=== PATIENT | female | born 1990 | race American Indian/Alaskan Native ===

== ENCOUNTER 2017-11-25 06:44 | Day surgery (SDC) | payer OTHER ==
[~2017-11-25 06:44] MED LIST: HEPARIN SUB-Q NR; VANCOMYCIN PHARMACY TO DOSE IV SCH; VANCOMYCIN/NS 1 GM/250 ML 1 GM/250 ML BAG IV NR
[2017-11-25] MEDS ORDERED: LACTATED RINGERS 1,000 ML IV SCH (08:00)
[2017-11-25] MEDS ORDERED: ZOFRAN ONE ×2 (08:08→08:40)
[2017-11-25] MEDS ORDERED: VERSED ONE ×2 (08:30→10:37)
[2017-11-25] MEDS ORDERED: PEPCID IV ONE (08:31)
[2017-11-25] MEDS ORDERED: DILAUDID ONE (08:38)
[2017-11-25] MEDS ORDERED: DIPRIVAN 10 MG/ML IV ONE (08:38)
[2017-11-25] MEDS ORDERED: DECADRON ONE (08:40)
[2017-11-25] MEDS ORDERED: ZEMURON IV ONE (08:40)
[2017-11-25] MEDS ORDERED: XYLOCAINE MPF 2% ONE (08:40)
[2017-11-25] MEDS ORDERED: MARCAINE 0.25% INFILTRATI ONE ×2 (09:18→10:13)
--- NOTE | 2017-11-25 09:48 | Anesthesia Day of Surgery ---
Anesthesia Day of Surgery - Day of Surgery Patient Examined: Yes Patient H&P Reviewed: Yes Patient is NPO: Yes
[2017-11-25] MEDS ORDERED: ZOFRAN IV PRN (09:49)
[2017-11-25] MEDS ORDERED: DEMEROL IV PRN (09:49)
[2017-11-25] MEDS ORDERED: TORADOL IV PRN (09:49)
--- NOTE | 2017-11-25 09:49 | Anesthesia Consultation ---
Anesthesia Consult and Med Hx Date of service: 11/25/17 - Airway Anesthetic Teeth Evaluation: Good ROM Head & Neck: Adequate Mental/Hyoid Distance: Adequate Mallampati Class: Class I Intubation Access Assessment: Good - Pulmonary Exam CTA: Yes - Cardiac Exam Cardiac Exam: RRR - Pulmonary Hx Smoking: Yes (QUIT A YEAR AGO) - Central Nervous System Hx Psychiatric Problems: No - Other Systems Hx Alcohol Use: Yes ([place] WINE) Hx Substance Use: No Hx Cancer: No
--- NOTE | 2017-11-25 10:16 | Short Stay Summary ---
Short Stay Documentation Date of service: 11/25/17 - History H&P: obtained from office - Allergies and Medications Current Medications: Allergies Penicillins Allergy (Verified 11/19/17 15:28) N/V/AND HIVES Home Medications Medication Instructions Recorded Confirmed Last Taken Type No Known Home Medications [No 11/19/17 11/19/17 Unknown History Reported Home Medications] Active Medications Heparin Sodium (Porcine) (Heparin) 5,000 unit SUB-Q PREOP NR Stop: 11/25/17 23:00 Last Admin: 11/25/17 08:38 Dose: 5,000 unit Hydromorphone HCl (Dilaudid) 0.5 mg IV Q10MIN PRN PRN Reason: Pain , Severe (7-10) Stop: 11/25/17 13:00 Vancomycin HCl (Vancomycin/Ns 1 Gm/250 Ml) 1 gm in 250 mls @ 167.007 mls/hr IV PREOP NR; Protocol Stop: 11/25/17 23:01 Last Admin: 11/25/17 09:10 Dose: 167.007 mls/hr Lactated Ringer's (Lactated Ringers) 1,000 mls @ 75 mls/hr IV DIRECT ABDULKADIR Last Admin: 11/25/17 08:10 Dose: 75 mls/hr Ketorolac Tromethamine (Toradol) 30 mg IV ONCE PRN PRN Reason: Pain, Moderate (4-6) Stop: 11/25/17 13:00 Meperidine HCl (Demerol) 25 mg IV ONCE PRN PRN Reason: Shivering Stop: 11/25/17 13:00 Ondansetron HCl (Zofran) 4 mg IV ONCE PRN PRN Reason: Nausea And Vomiting Stop: 11/25/17 13:00 Vancomycin HCl (Vancomycin Pharmacy To Dose) 1 each IV PKCONSULT ABDULKADIR - Brief post op/procedure progress note Date of procedure: 11/25/17 Pre-op diagnosis: Biliary colic Post-op diagnosis: same Procedure: Lap opal Anesthesia: GETA, local Surgeon: MIRELLA HERNANDEZ Felt Checker: ANTONIA MURILLO Estimated blood loss: none Pathology: list (Gallbladder) Condition: stable - Disposition Condition at discharge: Good Disposition: DC-01 TO HOME OR SELFCARE Short Stay Discharge Plan Activity: no restrictions Diet: regular Wound: remove dressing (11/27/17 and then may shower) Follow up with: MIRELLA HERNANDEZ MD [Staff Physician] - 7 Days Prescriptions: oxyCODONE /ACETAMINOPHEN [Percocet 5/325] 1 - 2 tab PO Q4HR PRN #30 tab PRN Reason: Pain , Severe (7-10) Promethazine [Phenergan TAB] 25 mg PO Q6HR PRN #10 tab PRN Reason: Nausea
[2017-11-25] MEDS ORDERED: ROBINUL ONE ×2 (10:21→10:39)
[2017-11-25] MEDS ORDERED: BLOXIVERZ ONE (10:21)
[2017-11-25] MEDS: DILAUDID IV PRN ×2 (11:08→11:24)
[2017-11-25] MEDS ORDERED: BENADRYL IV ONE (12:45)
[2017-11-25] MEDS ORDERED: PERCOCET 5/325 PO ONE (12:46)
[2017-11-25] MEDS ORDERED: PHENERGAN PO SCH (12:46)
--- NOTE | 2017-11-25 15:51 | Post Anesthesia Evaluation ---
- Post Anesthesia Evaluation Patient Participated: Yes Airway Patent: Yes Stable Respiratory Function: Yes Nausea/Vomiting: No Temp > 96.8F: Yes Pain Manageable: Yes Adequeate Hydration: Yes Anesthesia Complications: No
[2017-11-25 16:37] VITALS: BP 102/64
--- NOTE | 2017-12-01 16:18 | Operative Report ---
PREOPERATIVE DIAGNOSIS: Biliary colic. POSTOPERATIVE DIAGNOSIS: Biliary colic. PROCEDURE: Laparoscopic cholecystectomy. SURGEON: Kal Acosta MD EDUCATIONAL RECRUITER: Dr. Freire. ANESTHESIA: General and local. ESTIMATED BLOOD LOSS: Minimal. SPECIMEN: Gallbladder. COMPLICATIONS: None. INDICATIONS: This is a 27-year-old female who has a workup, consistent with biliary disease, presents now for laparoscopic cholecystectomy. OPERATIVE COURSE: The patient was brought to the operating room, identified, placed in the supine position. General anesthesia was achieved. Her abdomen was prepped and draped in usual manner. Prior to all incisions, the area was infiltrated with 0.25% Marcaine. A periumbilical 5 mm incision was made using Veress needle technique. The abdomen was insufflated to 15 mmHg of pressure. A 5 mm trocar was inserted using a 30-degree 5-mm telescope. The other trocars were placed under direct vision, which included a 10 mm epigastric port site and two 5 mm right lateral ports. The gallbladder was grasped and elevated. We tented up the triangle of Calot and then dissected out the cystic duct and artery until they were clearly going to the gallbladder. We then dissected the cystic duct proximal and distally, transected and clipped the artery proximally and distally and transected it. The gallbladder was then removed from the liver bed using electrocautery and delivered through the epigastric port site. The liver bed was hemostatic by the end the procedure clips in good position. We removed the ports under direct vision. No signs of bleeding from the port sites. We evacuated the CO2 and closed all the incisions with a 4-0 Vicryl suture, Steri-Strips and bandage. JOB# [id number] ABNER/ANA
== END 2017-11-25 14:30 | disposition home or self-care (01) ==
LOC: OR 06:44
PROVIDERS: ATTEND Surgery
DX: K80.64 Calculus of gallbladder and bile duct with chronic cholecystitis without obstruction (principal); Z88.0 Allergy status to penicillin; Z87.891 Personal history of nicotine dependence; Z98.890 Other specified postprocedural states; Z90.89 Acquired absence of other organs
CPT/HCPCS: 47562; 81025; 88304; J1100; J1170; J1200; J1644; J1885; J2250; J2405; J2704; J2710; J3370; J7120; Q0169